=== PATIENT | male | born 1965 | race Caucasian/White ===

== ENCOUNTER 2016-11-20 10:24 | Inpatient (IN) | payer OTHER ==
[~2016-11-20] VITALS: Ht 157.5 cm; Wt 84.0 kg
[~2016-11-20 10:24] MED LIST: DICLOFENAC SODI75 MG PO; FLEXERIL10 MG PO; HALDOL0.5 MG PO; HYDROCODON-ACE1 EAC7 PO; HYDROCODON-ACE1 EAC9 PO; KADIAN30 MG PO; LYRICA50 MG PO; METHYLPHENIDATE10 M1 PO; MORPHINE SULFAT30 M2 PO; PROMETHAZINE HC25 M1 PO; RITALIN20 MG PO; VALIUM10 MG PO
[2016-11-20 11:15] LABS: EOSINOPHIL (%) 1.1 % (0-5); EOSINOPHIL COUNT 0.1 K/uL (0-0.3); HEMATOCRIT 37.1 % (38.0-50.0); IMMATURE GRANULOCYTE (%) 0.2 % (0.0-0.7); INSTRUMENT ABS NEUTROPHIL CT 6.7 K/uL; LYMPHOCYTE COUNT 0.8 K/uL (1.0-2.8); MCH 25.6 PG (29.0-34.0); MCHC 30.2 G/DL (30.0-36.0); MCV 84.7 FL (86-99); MEAN PLAT.VOLUME 11.6 uM^3 (9.0-12.4); MONOCYTE (%) 6.6 % (3-12); MONOCYTE COUNT 0.5 K/uL (0-0.8); NEUTROPHIL (%) 81.8 % (45-76); NEUTROPHIL COUNT 6.7 K/uL (1.8-6.4); PLATELET COUNT 125 K/uL (156-360); RBC DIS.WIDTH-SD 45.8 % (39-53); RED BLOOD COUNT 4.38 M/uL (4.00-5.50); WHITE BLOOD COUNT 8.2 K/uL (4.1-10.2)
[2016-11-20 11:22] LABS: PROTHROMBIN TIME 10.4 SEC (10.2-12.9)
[2016-11-20 11:24] LABS: D-DIMER ELISA < 150.00 ng/mLDDU (<230); PTT 24.9 SEC (25-37)
[2016-11-20 11:28] LABS: CHLORIDE 101 mEq/L (99-109)
[2016-11-20 11:29] LABS: POTASSIUM 4.1 mEq/L (3.7-5.4); SODIUM 141 mEq/L (136-147)
[2016-11-20 11:30] LABS: GLUCOSE 100 mg/dL (70-99)
[2016-11-20 11:31] LABS: ANION GAP 8 MEQ/L (2-14)
[2016-11-20 11:34] LABS: GFR ESTIMATE (CALCULATED) > 59 mL/min/; UREA NITROGEN (BUN) 8 mg/dL (9-23)
[2016-11-20 11:36] LABS: TROP-I INTERPRETATION NEGATIVE; TROPONIN-I 0.02 ng/mL (0.0-0.30)
[2016-11-20 12:55] LABS: BASE EXCESS 7.4 mEq/L (-3 to +3); BICARBONATE 35.6 mEq/L (22-26); CARBOXY HGB 2.4 % (0-5); METHEMOGLOBIN 1.2 % (0-1.5); PCO2 69 mm Hg (35-45); PO2 71 mm Hg (80-100); pH 7.32 (7.35-7.45)
[2016-11-20 12:56] LABS: COMMENTS - BLOOD GASES A+C+; O2 FLOW 15 L/MIN; SITE RR
[2016-11-20 12:57] LABS: TOTAL RESP RATE 22 resp/min
[2016-11-20 17:00] VITALS: BP 131/78
[2016-11-20] MEDS ORDERED: CATAPRES0.2 MG PO (17:21)
[2016-11-20] MEDS ORDERED: PRILOSEC20 MG PO (17:21)
[2016-11-20 17:24] VITALS: BP 131/78
[2016-11-20 19:30] VITALS: BP 137/81
[2016-11-21] VITALS (7 sets, daily range): BP systolic 103–138; BP diastolic 57–83
[2016-11-21 05:02] LABS: EOSINOPHIL (%) 0 % (0-5); IMMATURE GRANULOCYTE (%) 1.6 % (0.0-0.7); IMMATURE GRANULOCYTE COUNT 0.2 K/uL; INSTRUMENT ABS NEUTROPHIL CT 8.6 K/uL; LYMPHOCYTE COUNT 0.5 K/uL (1.0-2.8); MCH 25.6 PG (29.0-34.0); MCHC 30.6 G/DL (30.0-36.0); MCV 83.7 FL (86-99); MEAN PLAT.VOLUME 11.7 uM^3 (9.0-12.4); MONOCYTE (%) 2.1 % (3-12); MONOCYTE COUNT 0.2 K/uL (0-0.8); NEUTROPHIL (%) 91.4 % (45-76); NEUTROPHIL COUNT 8.6 K/uL (1.8-6.4); PLATELET COUNT 127 K/uL (156-360); RBC DIS.WIDTH-CV 15.2 % (11.8-14.6); RBC DIS.WIDTH-SD 46.1 % (39-53); RED BLOOD COUNT 4.06 M/uL (4.00-5.50); WHITE BLOOD COUNT 9.4 K/uL (4.1-10.2)
[2016-11-21 05:20] LABS: CHLORIDE 103 mEq/L (99-109); POTASSIUM 4.7 mEq/L (3.7-5.4); SODIUM 140 mEq/L (136-147)
[2016-11-21 05:23] LABS: ANION GAP 5 MEQ/L (2-14)
[2016-11-21 05:24] LABS: TOTAL BILIRUBIN 0.3 mg/dL (0.0-1.0)
[2016-11-21 05:25] LABS: ALKALINE PHOSPHATASE 93 IU/L (3-129)
[2016-11-21 05:26] LABS: GFR ESTIMATE (CALCULATED) > 59 mL/min/
[2016-11-21 05:27] LABS: DIRECT BILIRUBIN 0.2 mg/dL (0.0-0.3); UREA NITROGEN (BUN) 9 mg/dL (9-23)
[2016-11-21 05:45] LABS: GLUCOSE 158 mg/dL (70-99)
[2016-11-21 10:06] LABS: INTERNAL CONTROL VALID? YES
[2016-11-22 04:00] VITALS: BP 129/78
[2016-11-22 08:15] VITALS: BP 119/71
[2016-11-22 11:21] VITALS: BP 127/76
[2016-11-22 17:16] VITALS: BP 124/78
[2016-11-22 19:44] VITALS: BP 116/62
[2016-11-22 23:55] VITALS: BP 102/69
[2016-11-23 04:33] VITALS: BP 115/65
[2016-11-23 07:23] VITALS: BP 119/83
[2016-11-23 11:28] VITALS: BP 123/78
[2016-11-23] MEDS ORDERED: PREDNISONE5 MG PO (11:37)
[2016-11-23] MEDS ORDERED: CEFDINIR300 MG PO (11:37)
[2016-11-23] MEDS ORDERED: BENZONATATE100 MG PO (11:37)
[2016-11-23] MEDS ORDERED: DUONEB 2.5-0.5 M3 ML AEROSOL (11:37)
== END 2016-11-23 14:00 | disposition home or self-care (01) | DRG 189 ==
LOC: EME 10:24 → EDOF 15:35 → ENRESERV 15:35 → 4EAST 15:35 → ENRESERV 16:14 → 4EAST 16:50
PROVIDERS: Emergency Medicine; Hospitalist
DX: J96.01 Acute respiratory failure with hypoxia (principal); J18.9 Pneumonia, unspecified organism; J44.0 Chronic obstructive pulmonary disease with (acute) lower respiratory infection; M41.9 Scoliosis, unspecified; J44.1 Chronic obstructive pulmonary disease with (acute) exacerbation; J98.11 Atelectasis; B19.20 Unspecified viral hepatitis C without hepatic coma; G89.29 Other chronic pain; M54.9 Dorsalgia, unspecified; R25.1 Tremor, unspecified; Z90.49 Acquired absence of other specified parts of digestive tract; Z87.891 Personal history of nicotine dependence; Z79.891 Long term (current) use of opiate analgesic; F20.9 Schizophrenia, unspecified
CPT/HCPCS: 36600; 71010; 71275; 80048; 80076; 82803; 83880; 84484; 85025; 85379; 85610; 85730; 87040; 87070; 87106; 87205; 87449; 93005; 94640; 94640 76; 94644; 94760; 94799; 99202; 99281; 99285; J0456; J0696; J1644; J2270; J2920; J2930; J7030; J7050; J7512

== ENCOUNTER 2016-11-29 16:15 | Inpatient (IN) | payer OTHER ==
[~2016-11-29] VITALS: Ht 157.5 cm; Wt 81.0 kg
[~2016-11-29 16:15] MED LIST changes: +BENZONATATE100 MG PO; +CATAPRES0.2 MG PO; +CEFDINIR300 MG PO; +DUONEB 2.5-0.5 M3 ML AEROSOL; +PREDNISONE5 MG PO; +PRILOSEC20 MG PO
[2016-11-29 17:12] LABS: EOSINOPHIL (%) 0.6 % (0-5); EOSINOPHIL COUNT 0.1 K/uL (0-0.3); HEMATOCRIT 37.4 % (38.0-50.0); IMMATURE GRANULOCYTE (%) 0.4 % (0.0-0.7); IMMATURE GRANULOCYTE COUNT 0.1 K/uL; INSTRUMENT ABS NEUTROPHIL CT 8.3 K/uL; MCH 25.6 PG (29.0-34.0); MCHC 30.2 G/DL (30.0-36.0); MCV 84.8 FL (86-99); MONOCYTE (%) 12.4 % (3-12); MONOCYTE COUNT 1.5 K/uL (0-0.8); NEUTROPHIL (%) 69.5 % (45-76); NEUTROPHIL COUNT 8.3 K/uL (1.8-6.4); PLATELET COUNT 231 K/uL (156-360); RBC DIS.WIDTH-CV 16.1 % (11.8-14.6); RBC DIS.WIDTH-SD 50.2 % (39-53); RED BLOOD COUNT 4.41 M/uL (4.00-5.50)
[2016-11-29 17:20] LABS: CHLORIDE 95 mEq/L (99-109); POTASSIUM 3.7 mEq/L (3.7-5.4); SODIUM 140 mEq/L (136-147)
[2016-11-29 17:22] LABS: GLUCOSE 79 mg/dL (70-99)
[2016-11-29 17:23] LABS: ANION GAP 8 MEQ/L (2-14)
[2016-11-29 17:24] LABS: TOTAL BILIRUBIN 0.8 mg/dL (0.0-1.0)
[2016-11-29 17:26] LABS: ALKALINE PHOSPHATASE 95 IU/L (3-129); GFR ESTIMATE (CALCULATED) 40 mL/min/
[2016-11-29 17:27] LABS: UREA NITROGEN (BUN) 12 mg/dL (9-23)
[2016-11-29 17:31] LABS: TROP-I INTERPRETATION POSITIVE
[2016-11-29 17:36] LABS: TROPONIN-I 0.89 ng/mL (0.0-0.30)
[2016-11-29 17:41] LABS: BASE EXCESS 13.1 mEq/L (-3 to +3); BICARBONATE 42.2 mEq/L (22-26); CARBOXY HGB 2.9 % (0-5); COMMENTS - BLOOD GASES A+C+; DEVICE NC; O2 FLOW 5 L/MIN; PCO2 82 mm Hg (35-45); PO2 67 mm Hg (80-100); SITE RR; TOTAL RESP RATE 18 resp/min; pH 7.32 (7.35-7.45)
[2016-11-29 17:52] LABS: INTER. NORMALIZED RATIO 1.2; PROTHROMBIN TIME 13.2 SEC (10.2-12.9)
[2016-11-29 17:55] LABS: PTT 25.5 SEC (25-37)
[2016-11-29 19:44] LABS: BASE EXCESS 12.7 mEq/L (-3 to +3); BICARBONATE 40.5 mEq/L (22-26); CARBOXY HGB 2.6 % (0-5); METHEMOGLOBIN 1.1 % (0-1.5); PO2 67 mm Hg (80-100); pH 7.37 (7.35-7.45)
[2016-11-29 19:45] LABS: COMMENTS - BLOOD GASES C+A+; DEVICE NIV; FI02 30 %; MODE SPONT; PCO2 70 mm Hg (35-45); PEEP 7 CM/H20; PRES. SUPPORT 12 CM/H2O; SITE LR; TOTAL RESP RATE 14 resp/min
[2016-11-29] MEDS ORDERED: HYDROCODON-ACE1 EAC7 PO (21:06)
[2016-11-29] MEDS ORDERED: MORPHINE SULFAT15 M1 PO (21:06)
[2016-11-29 22:00] VITALS: BP 140/101
[2016-11-29 22:07] VITALS: BP 140/101
[2016-11-29 23:00] VITALS: BP 158/106
[2016-11-29 23:29] LABS: METH RESISTANT S AUREUS PCR NEGATIVE (NEGATIVE)
[2016-11-29 23:37] LABS: PROBE CHECK PASS; SPECIMEN PROCESSING CONTROL PASS
[2016-11-30] VITALS (20 sets, daily range): BP systolic 102–158; BP diastolic 87–106
[2016-11-30 00:58] LABS: INTER. NORMALIZED RATIO 1.2; PROTHROMBIN TIME 13.1 SEC (10.2-12.9)
[2016-11-30 01:12] LABS: TROP-I INTERPRETATION POSITIVE
[2016-11-30 01:19] LABS: TROPONIN-I 2.39 ng/mL (0.0-0.30)
[2016-11-30 01:22] LABS: PTT 172.7 SEC (25-37)
[2016-11-30 05:35] LABS: HEMATOCRIT 37.6 % (38.0-50.0); MCH 25.6 PG (29.0-34.0); MCHC 29.8 G/DL (30.0-36.0); MCV 85.8 FL (86-99); MEAN PLAT.VOLUME 11.1 uM^3 (9.0-12.4); PLATELET COUNT 217 K/uL (156-360); RBC DIS.WIDTH-CV 16.3 % (11.8-14.6); RBC DIS.WIDTH-SD 50.9 % (39-53); RED BLOOD COUNT 4.38 M/uL (4.00-5.50); WHITE BLOOD COUNT 8.2 K/uL (4.1-10.2)
[2016-11-30 05:57] LABS: TROP-I INTERPRETATION POSITIVE; TROPONIN-I 1.99 ng/mL (0.0-0.30)
[2016-11-30 10:44] LABS: ANION GAP 11 MEQ/L (2-14); CHLORIDE 99 MEQ/L (99-109); SAMPLE HEMOLYSIS CHECK 0; SAMPLE ICTERIC CHECK 0; SAMPLE LIPEMIA CHECK 0; SODIUM 142 MEQ/L (136-147)
[2016-11-30 10:50] LABS: UREA NITROGEN (BUN) 20 mg/dL (9-23)
[2016-11-30 10:51] LABS: GFR ESTIMATE (CALCULATED) > 59 mL/min/; GLUCOSE 156 mg/dL (70-99); POTASSIUM 4.8 MEQ/L (3.7-5.4)
[2016-12-01] VITALS (23 sets, daily range): BP systolic 120–164; BP diastolic 83–121
[2016-12-02] VITALS (21 sets, daily range): BP systolic 114–152; BP diastolic 84–107
[2016-12-02 05:17] LABS: BASE EXCESS 22.5 mEq/L (-3 to +3); BICARBONATE 53.6 mEq/L (22-26); CARBOXY HGB 2.4 % (0-5); COMMENTS - BLOOD GASES C+; DEVICE NC; METHEMOGLOBIN 1.4 % (0-1.5); O2 FLOW 5 L/MIN; PCO2 104 mm Hg (35-45); PO2 102 mm Hg (80-100); SITE RR; pH 7.32 (7.35-7.45)
[2016-12-02 06:40] LABS: ADD MIUA? NO; BILIRUBIN NEGATIVE; BLOOD NEGATIVE; COLOR YELLOW ((YELLOW)); GLUCOSE (STRIP) NEGATIVE; KETONES 5; LEUKOCYTES NEGATIVE; NITRITE NEGATIVE; PROTEIN (STRIP) NEGATIVE; SPECIFIC GRAVITY 1.018 (1.000-1.030); UROBILINOGEN 0.2 MG/DL (0.2-1.0)
[2016-12-02 06:58] LABS: HEMATOCRIT 35.6 % (38.0-50.0); MCH 26.7 PG (29.0-34.0); MCHC 31.2 G/DL (30.0-36.0); MCV 85.6 FL (86-99); MEAN PLAT.VOLUME 11.4 uM^3 (9.0-12.4); PLATELET COUNT 179 K/uL (156-360); RBC DIS.WIDTH-CV 15.5 % (11.8-14.6); RBC DIS.WIDTH-SD 47.4 % (39-53); RED BLOOD COUNT 4.16 M/uL (4.00-5.50); WHITE BLOOD COUNT 7.7 K/uL (4.1-10.2)
[2016-12-02 07:39] LABS: ANION GAP ND MEQ/L (2-14); CHLORIDE 93 MEQ/L (99-109); GFR ESTIMATE (CALCULATED) > 59 mL/min/; POTASSIUM 4.2 MEQ/L (3.7-5.4); SAMPLE HEMOLYSIS CHECK 0; SAMPLE ICTERIC CHECK 0; SAMPLE LIPEMIA CHECK 0; SODIUM 142 MEQ/L (136-147); UREA NITROGEN (BUN) 20 mg/dL (9-23)
[2016-12-02 07:40] LABS: CARBON DIOXIDE (BICARBONATE) > 40.0 MEQ/L (20-31); GLUCOSE 104 mg/dL (70-99)
[2016-12-03] VITALS (13 sets, daily range): BP systolic 96–135; BP diastolic 71–100
[2016-12-03 05:58] LABS: EOSINOPHIL (%) 1.7 % (0-5); EOSINOPHIL COUNT 0.1 K/uL (0-0.3); HEMATOCRIT 36.6 % (38.0-50.0); IMMATURE GRANULOCYTE (%) 0.3 % (0.0-0.7); INSTRUMENT ABS NEUTROPHIL CT 4.2 K/uL; LYMPHOCYTE COUNT 1.9 K/uL (1.0-2.8); MCH 25.5 PG (29.0-34.0); MCHC 30.3 G/DL (30.0-36.0); MCV 83.9 FL (86-99); MONOCYTE (%) 11.3 % (3-12); MONOCYTE COUNT 0.8 K/uL (0-0.8); NEUTROPHIL (%) 59.3 % (45-76); NEUTROPHIL COUNT 4.2 K/uL (1.8-6.4); PLATELET COUNT 164 K/uL (156-360); RBC DIS.WIDTH-CV 15.8 % (11.8-14.6); RBC DIS.WIDTH-SD 46.5 % (39-53); RED BLOOD COUNT 4.36 M/uL (4.00-5.50); WHITE BLOOD COUNT 7.1 K/uL (4.1-10.2)
[2016-12-03 06:28] LABS: ANION GAP ND MEQ/L (2-14); CARBON DIOXIDE (BICARBONATE) > 40.0 MEQ/L (20-31); CHLORIDE 96 MEQ/L (99-109); GFR ESTIMATE (CALCULATED) > 59 mL/min/; GLUCOSE 96 mg/dL (70-99); POTASSIUM 3.6 MEQ/L (3.7-5.4); SAMPLE HEMOLYSIS CHECK 0; SAMPLE ICTERIC CHECK 0; SAMPLE LIPEMIA CHECK 0; SODIUM 146 MEQ/L (136-147); UREA NITROGEN (BUN) 16 mg/dL (9-23)
[2016-12-03 12:03] LABS: BASE EXCESS 24.2 mEq/L (-3 to +3); BICARBONATE 51.8 mEq/L (22-26); CARBOXY HGB 2.5 % (0-5); COMMENTS - BLOOD GASES A+C+; DEVICE RA; FI02 0.21 %; METHEMOGLOBIN 1.9 % (0-1.5); PCO2 68 mm Hg (35-45); PO2 53 mm Hg (80-100); SITE RR; TOTAL RESP RATE 22 resp/min; pH 7.49 (7.35-7.45)
[2016-12-04 03:22] VITALS: BP 118/71
[2016-12-04 08:35] VITALS: BP 123/85
[2016-12-04 11:45] VITALS: BP 111/81
[2016-12-04 15:56] VITALS: BP 109/73
[2016-12-04 20:04] VITALS: BP 106/70
[2016-12-04 23:57] VITALS: BP 95/64
[2016-12-05 04:05] VITALS: BP 101/64
[2016-12-05 06:02] LABS: HEMATOCRIT 40.9 % (38.0-50.0); MCH 25.2 PG (29.0-34.0); MCHC 30.6 G/DL (30.0-36.0); MCV 82.3 FL (86-99); MEAN PLAT.VOLUME 11.6 uM^3 (9.0-12.4); PLATELET COUNT 185 K/uL (156-360); RBC DIS.WIDTH-CV 16.6 % (11.8-14.6); RBC DIS.WIDTH-SD 47.5 % (39-53); RED BLOOD COUNT 4.97 M/uL (4.00-5.50); WHITE BLOOD COUNT 7.5 K/uL (4.1-10.2)
[2016-12-05 07:24] VITALS: BP 75/60; BP 84/89
[2016-12-05 07:31] LABS: ANION GAP 9 MEQ/L (2-14); CHLORIDE 102 MEQ/L (99-109); GFR ESTIMATE (CALCULATED) > 59 mL/min/; GLUCOSE 91 mg/dL (70-99); POTASSIUM 4.1 MEQ/L (3.7-5.4); SAMPLE HEMOLYSIS CHECK 0; SAMPLE ICTERIC CHECK 0; SAMPLE LIPEMIA CHECK 0; SODIUM 141 MEQ/L (136-147); UREA NITROGEN (BUN) 20 mg/dL (9-23)
[2016-12-05 10:17] VITALS: BP 96/58
[2016-12-05 11:20] VITALS: BP 94/56
[2016-12-05] MEDS ORDERED: NITROSTAT0.4 MG SL (14:55)
[2016-12-05] MEDS ORDERED: ATORVASTATIN CA40 MG PO (14:55)
[2016-12-05 16:38] VITALS: BP 103/71
== END 2016-12-05 17:21 | disposition home or self-care (01) | DRG 286 ==
LOC: EME 16:15 → EDOF 18:23 → 4WEST 18:23 → ENRESERV 18:25 → EDOF 18:30 → ENRESERV 19:31 → 4WEST 21:47 → CANRESERV 12-03 16:33 → ENRESERV 12-03 16:33 → 3EAST 12-03 18:01
PROVIDERS: Emergency Medicine; Internal Medicine; Internal Medicine Critical Care Medicine; Obstetrics & Gynecology; Physician Assistant Medical
DX: I11.0 Hypertensive heart disease with heart failure (principal); J96.21 Acute and chronic respiratory failure with hypoxia; E87.4 Mixed disorder of acid-base balance; J18.9 Pneumonia, unspecified organism; I27.2 Other secondary pulmonary hypertension; I95.9 Hypotension, unspecified; J44.0 Chronic obstructive pulmonary disease with (acute) lower respiratory infection; I27.81 Cor pulmonale (chronic); J96.22 Acute and chronic respiratory failure with hypercapnia; G47.33 Obstructive sleep apnea (adult) (pediatric); G89.29 Other chronic pain; M41.9 Scoliosis, unspecified; Z79.891 Long term (current) use of opiate analgesic; F20.9 Schizophrenia, unspecified; J44.1 Chronic obstructive pulmonary disease with (acute) exacerbation; E78.5 Hyperlipidemia, unspecified; Z87.891 Personal history of nicotine dependence; I45.10 Unspecified right bundle-branch block; N28.9 Disorder of kidney and ureter, unspecified; R74.0 Nonspecific elevation of levels of transaminase and lactic acid dehydrogenase [LDH]; Z91.19 Patient's noncompliance with other medical treatment and regimen; Z87.01 Personal history of pneumonia (recurrent); J98.11 Atelectasis; M95.4 Acquired deformity of chest and rib; I25.10 Atherosclerotic heart disease of native coronary artery without angina pectoris; F41.9 Anxiety disorder, unspecified; R00.0 Tachycardia, unspecified; I50.21 Acute systolic (congestive) heart failure; R60.0 Localized edema; E66.9 Obesity, unspecified; Z68.33 Body mass index [BMI] 33.0-33.9, adult; T50.901A Poisoning by unspecified drugs, medicaments and biological substances, accidental (unintentional), initial encounter; I50.32 Chronic diastolic (congestive) heart failure; Z79.899 Other long term (current) drug therapy; Z99.81 Dependence on supplemental oxygen; M54.5 Low back pain; R10.9 Unspecified abdominal pain; R25.1 Tremor, unspecified
CPT/HCPCS: 36600; 71010; 80048; 80053; 81003; 82803; 83605; 83880; 84484; 85025; 85027; 85610; 85730; 87040; 87070; 87086; 87205; 87641; 93005; 93306; 93970; 94002; 94640; 94640 76; 94660; 94799; 99202; 99281; 99285; C1769; C1887; C1894; J1644; J1940; J2250; J2543; J2765; J2930; J3010; J3370; J7030; J7120

== ENCOUNTER 2016-12-07 10:17 | Inpatient (IN) | payer OTHER ==
[~2016-12-07] VITALS: Ht 162.6 cm; Wt 79.0 kg
[~2016-12-07 10:17] MED LIST changes: +ATORVASTATIN CA40 MG PO; +MORPHINE SULFAT15 M1 PO; +NITROSTAT0.4 MG SL
[2016-12-07 10:44] LABS: BASE EXCESS -1.5 mEq/L (-3 to +3); CARBOXY HGB 3.6 % (0-5); METHEMOGLOBIN 1.2 % (0-1.5); PO2 57 mm Hg (80-100)
[2016-12-07 10:45] LABS: BICARBONATE 26.5 mEq/L (22-26); COMMENTS - BLOOD GASES NEG A+C+; DEVICE NC; O2 FLOW 2 L/MIN; PCO2 59 mm Hg (35-45); SITE LR; TOTAL RESP RATE 20 resp/min; pH 7.26 (7.35-7.45)
[2016-12-07 10:54] LABS: ANION GAP 18 MEQ/L (2-14); CHLORIDE 96 mEq/L (99-109); CREATININE 5.1 mg/dL (0.6-1.3); GLUCOSE 120 mg/dL (70-99); ISTAT DEVICE 359068; POTASSIUM > 6.0 mEq/L (3.7-5.4); SODIUM 130 mEq/L (136-147); UREA NITROGEN (BUN) 45 mg/dL (9-23)
[2016-12-07 10:55] LABS: EOSINOPHIL (%) 0 % (0-5); HEMATOCRIT 38.1 % (38.0-50.0); IMMATURE GRANULOCYTE (%) 1.1 % (0.0-0.7); IMMATURE GRANULOCYTE COUNT 0.2 K/uL; INSTRUMENT ABS NEUTROPHIL CT 16.8 K/uL; LYMPHOCYTE COUNT 0.3 K/uL (1.0-2.8); MCH 25.3 PG (29.0-34.0); MCHC 30.7 G/DL (30.0-36.0); MCV 82.3 FL (86-99); MEAN PLAT.VOLUME 11.9 uM^3 (9.0-12.4); MONOCYTE (%) 3.5 % (3-12); MONOCYTE COUNT 0.6 K/uL (0-0.8); NEUTROPHIL (%) 93.7 % (45-76); NEUTROPHIL COUNT 16.8 K/uL (1.8-6.4); PLATELET COUNT 141 K/uL (156-360); RBC DIS.WIDTH-CV 16.2 % (11.8-14.6); RBC DIS.WIDTH-SD 47.8 % (39-53); RED BLOOD COUNT 4.63 M/uL (4.00-5.50)
[2016-12-07 11:06] LABS: INTER. NORMALIZED RATIO 1.1; PROTHROMBIN TIME 11.8 SEC (10.2-12.9)
[2016-12-07 11:08] LABS: CHLORIDE 95 mEq/L (99-109)
[2016-12-07 11:11] LABS: ANION GAP 11 MEQ/L (2-14)
[2016-12-07 11:13] LABS: ALKALINE PHOSPHATASE 119 IU/L (3-129); SERUM ETHYL ALCOHOL < 10 mg/dL
[2016-12-07 11:15] LABS: TROP-I INTERPRETATION NEGATIVE; TROPONIN-I 0.27 ng/mL (0.0-0.30)
[2016-12-07 11:17] LABS: LIPASE 16 U/L (1.0-51.0)
[2016-12-07 11:18] LABS: GFR ESTIMATE (CALCULATED) 13 mL/min/; GLUCOSE 115 mg/dL (70-99); POTASSIUM 7.4 mEq/L (3.7-5.4); SODIUM 131 mEq/L (136-147); UREA NITROGEN (BUN) 43 mg/dL (9-23)
[2016-12-07 12:30] LABS: POINT-OF-CARE METER ID UU13113702
[2016-12-07 12:51] LABS: POINT-OF-CARE METER ID UU13113702
[2016-12-07 12:59] LABS: ADD MIUA? YES; BILIRUBIN NEGATIVE; BLOOD LARGE; COLOR YELLOW ((YELLOW)); GLUCOSE (STRIP) 50; KETONES NEGATIVE; LEUKOCYTES NEGATIVE; NITRITE NEGATIVE; PROTEIN (STRIP) NEGATIVE; SPECIFIC GRAVITY 1.009 (1.000-1.030); UROBILINOGEN 0.2 MG/DL (0.2-1.0)
[2016-12-07 13:15] LABS: BACTERIA RARE /HPF; EPITHELIAL CELLS RARE /HPF; MUCUS TRACE /LPF; RED BLOOD CELLS 0-5 /HPF (0-5); UCUL ADDED? NO; WHITE BLOOD CELLS 0-5 /HPF (0-5)
[2016-12-07 13:32] LABS: COCAINE NEGATIVE (150 ng/mL); PHENCYCLIDINE NEGATIVE (25 ng/mL); THC CANNABINOIDS NEGATIVE (50 ng/mL)
[2016-12-07 13:33] LABS: ADD MEDTOX COMMENT Y; AMPHETAMINE NEGATIVE (500 ng/mL); BARBITURATES NEGATIVE (200 ng/mL); BENZODIAZEPINES PRESUMPTIVE POSITIVE (150 ng/mL); INTERNAL CONTROLS VALID? YES; METHADONE NEGATIVE (200 ng/mL); METHAMPHETAMINE NEGATIVE (500 ng/mL); OPIATES (MORPHINE) PRESUMPTIVE POSITIVE (100 ng/mL); OXYCODONE PRESUMPTIVE POSITIVE (100 ng/mL); PROPOXYPHENE NEGATIVE (300 ng/mL); TRICYCLIC ANTIDEPRESSANTS NEGATIVE (300 ng/mL)
[2016-12-07 14:04] LABS: BENZODIAZEPINES, URINE SCREEN POSITIVE (200 ng/mL)
[2016-12-07 14:30] LABS: POINT-OF-CARE METER ID UU13113702
[2016-12-07 15:31] LABS: BASE EXCESS -7.1 mEq/L (-3 to +3); BICARBONATE 22.3 mEq/L (22-26); CARBOXY HGB 2.8 % (0-5); PCO2 64 mm Hg (35-45); PO2 170 mm Hg (80-100); pH 7.15 (7.35-7.45)
[2016-12-07 15:32] LABS: COMMENTS - BLOOD GASES A+C+; DEVICE VENT; FI02 100 %; MECHANICAL RATE 15 resp/min; MODE AC; PEEP 5 CM/H20; SITE RR; TIDAL VOLUME 300 ML
[2016-12-07 16:09] LABS: SODIUM 134 mEq/L (136-147)
[2016-12-07 16:10] LABS: GLUCOSE 138 mg/dL (70-99)
[2016-12-07 16:12] LABS: ANION GAP 9 MEQ/L (2-14)
[2016-12-07 16:15] LABS: UREA NITROGEN (BUN) 33 mg/dL (9-23)
[2016-12-07 16:21] LABS: CHLORIDE 107 mEq/L (99-109); GFR ESTIMATE (CALCULATED) 25 mL/min/; POTASSIUM 5.2 mEq/L (3.7-5.4)
[2016-12-07 18:30] VITALS: BP 139/85
[2016-12-07 19:00] VITALS: BP 139/101
[2016-12-07 19:44] LABS: METH RESISTANT S AUREUS PCR POSITIVE (NEGATIVE)
[2016-12-07 19:50] LABS: PROBE CHECK PASS
[2016-12-07 20:00] VITALS: BP 140/92
[2016-12-07 21:00] VITALS: BP 134/88
[2016-12-07 21:28] LABS: BASE EXCESS -1.7 mEq/L (-3 to +3); BICARBONATE 21.5 mEq/L (22-26); CARBOXY HGB 2.3 % (0-5); METHEMOGLOBIN 2.1 % (0-1.5)
[2016-12-07 21:29] LABS: COMMENTS - BLOOD GASES C+A+; DEVICE 980 VENT; FI02 40 %; MECHANICAL RATE 20 resp/min; MODE AC; PCO2 31 mm Hg (35-45); PEEP 5 CM/H20; PO2 70 mm Hg (80-100); SITE LR; TIDAL VOLUME 350 ML; TOTAL RESP RATE 20 resp/min; pH 7.45 (7.35-7.45)
[2016-12-07 21:32] LABS: ANION GAP 8 MEQ/L (2-14); CHLORIDE 107 MEQ/L (99-109); GFR ESTIMATE (CALCULATED) 30 mL/min/; GLUCOSE 157 mg/dL (70-99); MAGNESIUM 1.7 mg/dl (1.3-2.7); POTASSIUM 5.2 MEQ/L (3.7-5.4); SAMPLE HEMOLYSIS CHECK 0; SAMPLE ICTERIC CHECK 0; SAMPLE LIPEMIA CHECK 0; SODIUM 137 MEQ/L (136-147); UREA NITROGEN (BUN) 29 mg/dL (9-23)
[2016-12-07 22:00] VITALS: BP 145/101
[2016-12-07 23:00] VITALS: BP 131/94
[2016-12-08] VITALS (21 sets, daily range): BP systolic 116–160; BP diastolic 81–121
[2016-12-08 05:38] LABS: HEMATOCRIT 35.1 % (38.0-50.0); MCH 25.5 PG (29.0-34.0); MCHC 31.6 G/DL (30.0-36.0); MCV 80.7 FL (86-99); MEAN PLAT.VOLUME 11.8 uM^3 (9.0-12.4); PLATELET COUNT 121 K/uL (156-360); RBC DIS.WIDTH-CV 16.4 % (11.8-14.6); RBC DIS.WIDTH-SD 46.5 % (39-53); RED BLOOD COUNT 4.35 M/uL (4.00-5.50); WHITE BLOOD COUNT 15.3 K/uL (4.1-10.2)
[2016-12-08 06:06] LABS: ANION GAP 9 MEQ/L (2-14); CHLORIDE 110 MEQ/L (99-109); GFR ESTIMATE (CALCULATED) 49 mL/min/; GLUCOSE 127 mg/dL (70-99); POTASSIUM 4.9 MEQ/L (3.7-5.4); SAMPLE HEMOLYSIS CHECK 0; SAMPLE ICTERIC CHECK 0; SAMPLE LIPEMIA CHECK 0; SODIUM 140 MEQ/L (136-147); UREA NITROGEN (BUN) 24 mg/dL (9-23)
[2016-12-09 04:11] VITALS: BP 140/97
[2016-12-09 07:25] VITALS: BP 143/85
[2016-12-09 07:55] LABS: EOSINOPHIL (%) 0.1 % (0-5); HEMATOCRIT 30.4 % (38.0-50.0); IMMATURE GRANULOCYTE (%) 0.3 % (0.0-0.7); INSTRUMENT ABS NEUTROPHIL CT 6.5 K/uL; LYMPHOCYTE COUNT 1.3 K/uL (1.0-2.8); MCH 25.5 PG (29.0-34.0); MCHC 30.9 G/DL (30.0-36.0); MCV 82.4 FL (86-99); MEAN PLAT.VOLUME 11.1 uM^3 (9.0-12.4); MONOCYTE (%) 9.4 % (3-12); MONOCYTE COUNT 0.8 K/uL (0-0.8); NEUTROPHIL (%) 75.2 % (45-76); NEUTROPHIL COUNT 6.5 K/uL (1.8-6.4); PLATELET COUNT 108 K/uL (156-360); RBC DIS.WIDTH-CV 17.2 % (11.8-14.6); RED BLOOD COUNT 3.69 M/uL (4.00-5.50); WHITE BLOOD COUNT 8.7 K/uL (4.1-10.2)
[2016-12-09 08:22] LABS: ANION GAP 8 MEQ/L (2-14); CHLORIDE 115 MEQ/L (99-109); POTASSIUM 4.1 MEQ/L (3.7-5.4); SAMPLE HEMOLYSIS CHECK 0; SAMPLE ICTERIC CHECK 0; SAMPLE LIPEMIA CHECK 0; UREA NITROGEN (BUN) 15 mg/dL (9-23)
[2016-12-09 08:24] LABS: GFR ESTIMATE (CALCULATED) > 59 mL/min/; GLUCOSE 91 mg/dL (70-99); SODIUM 148 MEQ/L (136-147)
[2016-12-09 12:00] VITALS: BP 143/85
[2016-12-09 15:00] VITALS: BP 145/84
[2016-12-09] MEDS ORDERED: HALDOL1 MG PO (16:15)
[2016-12-09] MEDS ORDERED: VALIUM5 MG PO (16:17)
[2016-12-09 20:00] VITALS: BP 146/74
[2016-12-10 00:57] VITALS: BP 142/68
[2016-12-10 04:28] VITALS: BP 128/67; BP 138/67
[2016-12-10 08:01] LABS: EOSINOPHIL (%) 2.3 % (0-5); EOSINOPHIL COUNT 0.1 K/uL (0-0.3); HEMATOCRIT 27.8 % (38.0-50.0); IMMATURE GRANULOCYTE (%) 0.2 % (0.0-0.7); INSTRUMENT ABS NEUTROPHIL CT 3.6 K/uL; MCH 26.5 PG (29.0-34.0); MCHC 32.4 G/DL (30.0-36.0); MCV 81.8 FL (86-99); MEAN PLAT.VOLUME 11.8 uM^3 (9.0-12.4); MONOCYTE (%) 9.9 % (3-12); MONOCYTE COUNT 0.5 K/uL (0-0.8); NEUTROPHIL COUNT 3.6 K/uL (1.8-6.4); PLATELET COUNT 117 K/uL (156-360); RBC DIS.WIDTH-CV 16.7 % (11.8-14.6); RBC DIS.WIDTH-SD 49.1 % (39-53); WHITE BLOOD COUNT 5.3 K/uL (4.1-10.2)
[2016-12-10 08:10] VITALS: BP 156/96
[2016-12-10 08:21] LABS: ALKALINE PHOSPHATASE 57 IU/L (3-129); ANION GAP 6 MEQ/L (2-14); CHLORIDE 113 MEQ/L (99-109); GFR ESTIMATE (CALCULATED) > 59 mL/min/; GLUCOSE 87 mg/dL (70-99); POTASSIUM 3.8 MEQ/L (3.7-5.4); SAMPLE HEMOLYSIS CHECK 0; SAMPLE ICTERIC CHECK 0; SAMPLE LIPEMIA CHECK 0; SODIUM 146 MEQ/L (136-147); TOTAL BILIRUBIN 0.9 MG/DL (0.0-1.0); UREA NITROGEN (BUN) 7 mg/dL (9-23)
[2016-12-10 12:00] VITALS: BP 144/98; BP 44/98
[2016-12-10 15:19] LABS: C DIFF TOXIN NEGATIVE (NEGATIVE)
[2016-12-10 15:21] LABS: PROBE CHECK PASS; SPECIMEN PROCESSING CONTROL PASS
[2016-12-10 16:30] VITALS: BP 140/95
[2016-12-11 04:21] VITALS: BP 140/88
[2016-12-11 07:11] LABS: EOSINOPHIL (%) 2.9 % (0-5); EOSINOPHIL COUNT 0.1 K/uL (0-0.3); HEMATOCRIT 29.2 % (38.0-50.0); IMMATURE GRANULOCYTE (%) 0.2 % (0.0-0.7); INSTRUMENT ABS NEUTROPHIL CT 2.9 K/uL; LYMPHOCYTE COUNT 1.3 K/uL (1.0-2.8); MCH 25.8 PG (29.0-34.0); MCHC 31.5 G/DL (30.0-36.0); MCV 81.8 FL (86-99); MEAN PLAT.VOLUME 11.1 uM^3 (9.0-12.4); MONOCYTE (%) 10.7 % (3-12); MONOCYTE COUNT 0.5 K/uL (0-0.8); NEUTROPHIL (%) 59.5 % (45-76); NEUTROPHIL COUNT 2.9 K/uL (1.8-6.4); PLATELET COUNT 121 K/uL (156-360); RBC DIS.WIDTH-CV 16.8 % (11.8-14.6); RBC DIS.WIDTH-SD 48.2 % (39-53); RED BLOOD COUNT 3.57 M/uL (4.00-5.50); WHITE BLOOD COUNT 4.9 K/uL (4.1-10.2)
[2016-12-11 07:25] VITALS: BP 151/101
[2016-12-11 07:43] LABS: ALKALINE PHOSPHATASE 69 IU/L (3-129); ANION GAP 8 MEQ/L (2-14); CHLORIDE 112 MEQ/L (99-109); GFR ESTIMATE (CALCULATED) > 59 mL/min/; GLUCOSE 93 mg/dL (70-99); POTASSIUM 3.2 MEQ/L (3.7-5.4); SAMPLE HEMOLYSIS CHECK 0; SAMPLE ICTERIC CHECK 0; SAMPLE LIPEMIA CHECK 0; SODIUM 148 MEQ/L (136-147); UREA NITROGEN (BUN) 4 mg/dL (9-23)
[2016-12-11 12:15] VITALS: BP 158/100
[2016-12-11 15:45] VITALS: BP 128/86
[2016-12-11 20:15] VITALS: BP 140/90
[2016-12-12 01:50] VITALS: BP 130/88
[2016-12-12 04:22] VITALS: BP 132/74
[2016-12-12 06:03] LABS: ALKALINE PHOSPHATASE 71 IU/L (3-129); ANION GAP 8 MEQ/L (2-14); CHLORIDE 112 MEQ/L (99-109); GFR ESTIMATE (CALCULATED) > 59 mL/min/; GLUCOSE 138 mg/dL (70-99); POTASSIUM 3.5 MEQ/L (3.7-5.4); SAMPLE HEMOLYSIS CHECK 0; SAMPLE ICTERIC CHECK 0; SAMPLE LIPEMIA CHECK 0; SODIUM 147 MEQ/L (136-147); TOTAL BILIRUBIN 1.1 MG/DL (0.0-1.0); UREA NITROGEN (BUN) 4 mg/dL (9-23)
[2016-12-12 07:15] VITALS: BP 142/85
[2016-12-12 12:33] LABS: HBSG INDEX 0.14
[2016-12-12 12:34] LABS: ANTI-HEPATITIS A VIRUS (IGM) Nonreactive; HAV INDEX 0.11
[2016-12-12 12:35] LABS: ANTI-HEPATITIS B CORE (IGM) Nonreactive; HBC IgM INDEX 0.06
[2016-12-12 15:14] LABS: HPCA INDEX 9.02
[2016-12-12 17:57] VITALS: BP 132/92
[2016-12-12 20:20] VITALS: BP 134/98
[2016-12-13 00:26] VITALS: BP 131/85
[2016-12-13 02:15] VITALS: BP 128/84
[2016-12-13 06:42] LABS: ALKALINE PHOSPHATASE 95 IU/L (3-129); ANION GAP 7 MEQ/L (2-14); CHLORIDE 109 MEQ/L (99-109); GFR ESTIMATE (CALCULATED) > 59 mL/min/; POTASSIUM 4.1 MEQ/L (3.7-5.4); SAMPLE HEMOLYSIS CHECK 0; SAMPLE ICTERIC CHECK 0; SAMPLE LIPEMIA CHECK 0; SODIUM 146 MEQ/L (136-147); TOTAL BILIRUBIN 1.3 MG/DL (0.0-1.0); UREA NITROGEN (BUN) 5 mg/dL (9-23)
[2016-12-13 06:46] LABS: GLUCOSE 85 mg/dL (70-99)
[2016-12-13 07:30] VITALS: BP 132/92
[2016-12-13 12:00] VITALS: BP 128/93
[2016-12-13] MEDS ORDERED: DUONEB 2.5-0.5 M3 ML AEROSOL (12:46)
[2016-12-13] MEDS ORDERED: NICOTINE PATCH1 EAC2 TD (12:47)
[2016-12-13] MEDS ORDERED: ATORVASTATIN CA40 MG PO (12:47)
[2016-12-13] MEDS ORDERED: MIRTAZAPINE15 MG PO (12:48)
[2016-12-13] MEDS ORDERED: BUSPAR5 MG PO (12:48)
[2016-12-13] MEDS ORDERED: SPIRIVA1 INHALATI IH (12:49)
[2016-12-13] MEDS ORDERED: TUDORZA PRESS400 MCG IH (15:49)
[2016-12-14 16:47] LABS: HCV RNA (IU/mL) <15 IU/mL (<15)
[2016-12-15 21:20] LABS: HCV RNA (LOG IU/mL) <1.18 (<1.18)
== END 2016-12-13 15:44 | disposition home health service (06) | DRG 208 ==
LOC: EME → EDBD 10:17 → EME 10:17 → EDOF 15:14 → 4WEST 15:14 → ENRESERV 15:15 → 4WEST 18:25 → ENRESERV 12-08 18:14 → 4EAST 12-08 19:46
PROVIDERS: Emergency Medicine; Internal Medicine; Internal Medicine Critical Care Medicine
PROC: 0BH17EZ Insertion of Endotracheal Airway into Trachea, Via Natural or Artificial Opening (ICD-10-PCS; principal; 2016-12-07)
PROC: 5A1945Z Respiratory Ventilation, 24-96 Consecutive Hours (ICD-10-PCS; principal; 2016-12-07)
DX: J69.0 Pneumonitis due to inhalation of food and vomit (principal); J96.22 Acute and chronic respiratory failure with hypercapnia; G93.49 Other encephalopathy; J96.21 Acute and chronic respiratory failure with hypoxia; Y95 Nosocomial condition; J44.1 Chronic obstructive pulmonary disease with (acute) exacerbation; T40.605A Adverse effect of unspecified narcotics, initial encounter; T42.6X5A Adverse effect of other antiepileptic and sedative-hypnotic drugs, initial encounter; N17.9 Acute kidney failure, unspecified; E87.2 Acidosis; E87.0 Hyperosmolality and hypernatremia; E87.5 Hyperkalemia; E87.1 Hypo-osmolality and hyponatremia; F05 Delirium due to known physiological condition; D69.6 Thrombocytopenia, unspecified; G89.29 Other chronic pain; M54.5 Low back pain; M41.9 Scoliosis, unspecified; B18.2 Chronic viral hepatitis C; R74.0 Nonspecific elevation of levels of transaminase and lactic acid dehydrogenase [LDH]; E86.0 Dehydration; E87.6 Hypokalemia; G47.33 Obstructive sleep apnea (adult) (pediatric); R40.2430 Glasgow coma scale score 3-8, unspecified time; I10 Essential (primary) hypertension; F41.9 Anxiety disorder, unspecified; F32.9 Major depressive disorder, single episode, unspecified; G43.909 Migraine, unspecified, not intractable, without status migrainosus; G47.00 Insomnia, unspecified; J98.11 Atelectasis; F10.10 Alcohol abuse, uncomplicated; Z91.19 Patient's noncompliance with other medical treatment and regimen; Z98.890 Other specified postprocedural states; Z90.49 Acquired absence of other specified parts of digestive tract; Z87.891 Personal history of nicotine dependence
CPT/HCPCS: 36600; 70450; 71010; 71020; 76705; 80047; 80048; 80048 91; 80053; 80074; 80202; 81003; 82140; 82803; 82948; 83605; 83690; 83735; 84100; 84484; 84999; 85025; 85027; 85610; 85730; 86803; 87040; 87070; 87205; 87493; 87522 90; 87641; 93005; 93970; 94002; 94003; 94640; 94640 76; 94660; 94760; 94799; 99202; 99281; 99285; C1753; G0480; J0610; J1170; J1644; J2310; J2543; J2704; J2930; J3370; J7030; J7040; J7042; J7050; S0028

== ENCOUNTER 2017-06-11 11:38 | Emergency (ER) | payer OTHER ==
[~2017-06-11] VITALS: Ht 154.9 cm; Wt 84.9 kg
[~2017-06-11 11:38] MED LIST changes: +BUSPAR5 MG PO; +HALDOL1 MG PO; +MIRTAZAPINE15 MG PO; +NICOTINE PATCH1 EAC2 TD; +SPIRIVA1 INHALATI IH; +TUDORZA PRESS400 MCG IH; +VALIUM5 MG PO
[2017-06-11 12:44] LABS: BASOPHIL (%) 0.6 % (0-1); EOSINOPHIL (%) 2.3 % (0-5); EOSINOPHIL COUNT 0.2 K/uL (0-0.3); HEMOGLOBIN 16.2 G/DL (12.5-16.6); IMMATURE GRANULOCYTE (%) 0.2 % (0.0-0.7); LYMPHOCYTE (%) 33.3 % (15-42); LYMPHOCYTE COUNT 2.2 K/uL (1.0-2.8); MCH 29.3 PG (29.0-34.0); MCHC 33.1 G/DL (30.0-36.0); MCV 88.6 FL (86-99); MONOCYTE (%) 8.6 % (3-12); MONOCYTE COUNT 0.6 K/uL (0-0.8); NEUTROPHIL COUNT 3.7 K/uL (1.8-6.4); PLATELET COUNT 156 K/uL (156-360); RBC DIS.WIDTH-CV 15.7 % (11.8-14.6); RBC DIS.WIDTH-SD 51.4 % (39-53); RED BLOOD COUNT 5.53 M/uL (4.00-5.50); WHITE BLOOD COUNT 6.6 K/uL (4.1-10.2)
[2017-06-11 13:16] LABS: ALBUMIN 4.5 G/DL (3.2-4.8); CHLORIDE 101 MEQ/L (99-109); POTASSIUM 4.2 MEQ/L (3.7-5.4); SODIUM 140 MEQ/L (136-147); TOTAL BILIRUBIN 0.3 MG/DL (0.0-1.0)
[2017-06-11 13:22] LABS: ALKALINE PHOSPHATASE 102 IU/L (3-129); ALT (GPT) 21 IU/L (3-49); AST (GOT) 24 IU/L (2-34); CREATININE 1.1 MG/DL (0.6-1.3); GFR ESTIMATE (CALCULATED) > 59 mL/min/ (58.99-99999); GLUCOSE 111 mg/dL (70-99); TOTAL PROTEIN 7.6 G/DL (6.4-8.3); UREA NITROGEN (BUN) 19 mg/dL (9-23)
[2017-06-11 18:23] VITALS: BP 142/107
== END 2017-06-11 18:25 | disposition left against medical advice (07) ==
LOC: EME 11:38
PROVIDERS: Emergency Medicine
DX: R51 Headache (principal); I16.0 Hypertensive urgency; F11.20 Opioid dependence, uncomplicated; G89.29 Other chronic pain; M41.9 Scoliosis, unspecified; F41.9 Anxiety disorder, unspecified; F20.9 Schizophrenia, unspecified; Z87.891 Personal history of nicotine dependence
CPT/HCPCS: 70450; 80053; 85025; 99281; 99284; J0780; J1200; J7040